=== PATIENT | female | born 1955 | race Caucasian/White ===

== ENCOUNTER → 2018-02-11 09:55 | Day surgery (SDC) | payer OTHER ==
--- NOTE | 2018-02-04 08:44 | HP ---
AMENDED REPORT NOW INCLUDES DESIGNATED COSIGNER ADMISSION HISTORY AND PHYSICAL: DATE OF ADMISSION: 02/11/18. ATTENDING SURGEON: Dr. Nathan Yip.* (DICTATED BY RICKY JORDAN) CHIEF COMPLAINT: Left breast cancer. HISTORY OF PRESENT ILLNESS: This is a 62-year-old generally healthy female who first noted a possible mass in the left breast in the spring of this year. She had had a prior injury (horse bite) to the left breast in 2012 and in July of that year underwent a biopsy with Dr. William with benign findings. She states that there had been no changes in the interim and she has not noted any changes in the mass since the spring. She had not had any recent imaging studies until a mammogram was performed through the [facility] on 08/04/17, which showed multiple small (less than 1 cm) well circumscribed ovoid masses in the left upper outer quadrant as well as a separate 6 mm nodule possibly consistent with an intramammary lymph node. Further assessment by ultrasound was recommended. The patient has not had any other changes with the breast in terms of skin or nipple changes though she states that she does notice an occasional drop of pale fluid from the left nipple. Family history is positive for breast cancer in a maternal cousin but no other first or second-degree relatives. She did take control pills for a total of 6 to 8 years in her 20s. She has not been on any hormone replacement therapy in recent years. The remainder of her menstrual and breast history are outlined in her chart record. She was exposed to MICHAEL in utero but has had normal Pap smears and the most recent being approximately 2 years ago. She was seen in the office by Dr. Yip initially on 12/29/17, at which time he described a vague approximately 2.5 cm mass in the lateral aspect of the left breast. Fine- needle aspiration biopsy was performed, which was indeterminate. She then underwent a core biopsy on 01/08/18, which showed DCIS (see separate report). Dr. Yip has discussed with her the indications for surgery, the risks, benefits, and alternatives. She has not yet been referred to or seen by Medical or Radiation Oncology. She would like to proceed as scheduled with excision left breast cancer. PAST MEDICAL HISTORY: Unremarkable for any other chronic or active medical problems. PAST SURGICAL HISTORY: Her only prior surgeries have been tonsillectomy and dental surgery with no surgical or anesthesia problems reported. CURRENT MEDICATIONS: She takes no prescription medications. She does take a multivitamin daily as well as a collagen supplement and a number of other naturopathic supplements (she was advised to hold her naturopathic supplements for 3 days preoperatively). DRUG ALLERGIES: None. FAMILY HISTORY: As noted above. No known family history of anesthesia problems , bleeding or clotting disorders. SOCIAL HISTORY: The patient currently lives alone. 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 She denies use of tobacco. She drinks between 2 or 3 drinks per week. She denies other recreational drug use. REVIEW OF SYSTEMS: General: No recent constitutional symptoms or acute illnesses other than described in the HPI. HEENT: No problems reported. Cardiovascular: No chest pain, palpitations, or history of heart murmur. Respiratory: No history of chronic cough or shortness of breath. GI: No problems reported. She has not undergone colonoscopy or any other colorectal cancer screening, but no problems specifically reported. : No problems reported. 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 Endocrine: No diabetes or thyroid dysfunction. Remainder of review of systems is negative. PHYSICAL EXAMINATION GENERAL: Well-nourished, well-developed female in no acute distress. VITAL SIGNS: Height 68 inches, weight 138 pounds, blood pressure 128/72, pulse 84, respirations 18. HEENT: Pupils equal and round, reactive. EOMs intact. No conjunctival pallor. Oropharynx: Teeth in good repair. She does have a partial lower denture. No intraoral lesions. NECK: No lymphadenopathy, thyromegaly, or masses. LUNGS: Clear to auscultation. No rales or wheezes. BREASTS: (Per Dr. Yip's exam) No masses palpable in the right breast. Left breast exam as noted above in the HPI. No palpable axillary or supraclavicular lymphadenopathy. HEART: Regular rate and rhythm. No murmur appreciated. ABDOMEN: Soft, nontender to palpation. No palpable masses or organomegaly. BACK: No spinous process or CVA tenderness. EXTREMITIES: No edema. GENITALIA: Not done. RECTAL: Not done. NEUROLOGICAL: Grossly intact. SKIN: Warm and dry. No suspicious rashes or lesions noted. 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 PLAN: Excision, left breast cancer. RICKY JORDAN [id number]/[id number] #: [id number] [facility]US[facility]
[~2018-02-11 09:55] MED LIST: Acetaminophen TAB* 325 MG PO PRN; Buffered Lidocaine 0.9% SYRIN* 5 ML/SYR SYRINGE INTRADERM ONE; Buffered Lidocaine 0.9% SYRIN* 5 ML/SYR SYRINGE ONE; Bupivacaine 0.5% W/EPI SDV* 30 ML VIAL ONE; Dexamethasone IV* 4 MG/ML 1 ML (4 MG) IV SLOW PU ONE; Dexamethasone IV* 4 MG/ML 1 ML (4 MG) ONE; DiMENhydriNATE IV* 50 MG/ML VIAL IV PUSH PRN; Famotidine IV* 10 MG/ML 2 ML (20 mg) IV ONE; Famotidine IV* 10 MG/ML 2 ML (20 mg) ONE; HYDROcodone/ACETAMIN 5-325 MG* 1 TAB PO PRN; Lidocaine 1% INJ* 10 MG/ML 30 ML SDV ONE; Midazolam* 1 MG/ML 2 ML VIAL (2 MG) ONE; Morphine VIAL* 10 MG/ML 1 ML VIAL ONE; Naloxone* 0.4 MG/ML 1 ML VIAL IV PRN; ceFAZolin 2 GM PREMIX in ORs 2 GM/50 ML BAG IVPB ONE; fentaNYL* 50 MCG/ML 2 ML VIAL (100 MCG VIAL) IV PRN; oxyCODONE TAB* 5 MG TAB PO PRN
[2018-02-11 14:11] VITALS: BP 135/71
--- NOTE | 2018-02-12 05:24 | OP ---
CC: [facility] * DATE OF OPERATION: 02/11/18 - SDS DATE OF : 51 SURGEON: Nathan Yip MD AWS SOLUTION ARCHITECT: None. ANESTHESIOLOGIST: Dr. Samano. ANESTHESIA: LMAC anesthesia. PRE-OP DIAGNOSIS: Left breast cancer. POST-OP DIAGNOSIS: Left breast cancer. OPERATIVE PROCEDURE: Wide local excision, left breast cancer. DESCRIPTION OF PROCEDURE: The patient was supine on the operative table. After adequate intravenous sedation, compression stockings, Luan Hugger warmer, and intravenous antibiotics. The left breast was prepped with antiseptic, draped in a sterile fashion. Local infiltrative anesthesia was administered. An approximately 4 to 5 cm was created and mass was removed in its entirety with what felt like approximately an 1 cm margin. Specimen was marked with usual marking sutures and sent fresh to Pathology. Hemostasis was obtained using electrocautery and closure was accomplished using 3-0 and 5-0 Vicryl followed by Steri-Strips. She tolerated the procedure well, was awakened and brought to the Recovery in good condition. There were no complications. No drains. Pathologic specimen is left breast wide excision. Sponge and instrument counts were correct. Estimated blood loss 20 mL. [id number]/[id number] #: [id number] [facility]
== END | disposition home or self-care (01) ==
LOC: OR 09:55
PROVIDERS: ATTEND Surgery
DX: D05.12 Intraductal carcinoma in situ of left breast (principal)
CPT/HCPCS: 88307; 88360; J0690; J1100; J2250; J2270